=== PATIENT | female | born 1990 | race Caucasian/White ===

== ENCOUNTER 2018-10-26 18:15 | Emergency (ER) | payer SELFPAY ==
[2018-10-26 19:02] VITALS: TEMP 98; O2SAT 98
--- NOTE | 2018-10-26 19:07 | ED.PDOC ---
History of Present Illness - General Chief Complaint: General Stated Complaint: WANTS HELP WITH DETOX FROM METHADONE AND HEROIN Time Seen by Provider: 10/26/18 19:02 Source: patient Exam Limitations: no limitations - History of Present Illness Initial Comments: Patient presents with tremors and dehydration. She has been detoxing from opiates. She has had suboxone in the last week but has not had anything else since. She has had N/V/D for several days. She says that when this has happened before, Phenergan and Clonidine have helped. She has abdominal cramping and a poor appetite. She denies any current recreational drugs. She quit smoking cigarrettes two years ago. No other complaints. Timing/Duration: other - "several days" Severity: moderate Improving Factors: nothing Worsening Factors: nothing Associated Symptoms: denies symptoms Allergies/Adverse Reactions: Allergies Ondansetron [From Zofran] Adverse Reaction (Verified 10/26/18 18:54) Home Medications: Ambulatory Orders Clonidine HCl 0.1 mg PO DAILY #3 tab 10/26/18 Promethazine Tab [Phenergan Tablet] 25 mg PO .Q4H #6 tab 10/26/18 Review of Systems - Review of Systems Constitutional: States: no symptoms reported EENTM: States: no symptoms reported Respiratory: States: no symptoms reported Cardiology: States: no symptoms reported Gastrointestinal/Abdominal: States: see HPI Genitourinary: States: no symptoms reported Musculoskeletal: States: see HPI Skin: States: no symptoms reported Neurological: States: see HPI Endocrine: States: no symptoms reported Hematologic/Lymphatic: States: no symptoms reported Past Medical History (General) - Patient Medical History Hx Asthma: No Hx of COPD: No Hx Congestive Heart Failure: No Hx Hypertension: No Hx Diabetes: No Hx Hepatitis C: Yes - Vaccination History Hx Tetanus, Diphtheria Vaccination: Yes Hx Influenza Vaccination: No Hx Pneumococcal Vaccination: No - Social History Hx Tobacco Use: No Hx Alcohol Use: No Hx Substance Use: Yes Hx Substance Use Treatment: Yes Hx Depression: Yes - Female History Patient is a Female of Child Bearing Age (10 -59 yrs old): Yes Family Medical History - Family History Mother Family History: Unknown Physical Exam - Physical Exam General Appearance: Anxious Eye Exam: bilateral normal Ears, Nose, Throat: normal ENT inspection Neck: non-tender, full range of motion, supple Respiratory: lungs clear, normal breath sounds Cardiovascular/Chest: normal peripheral pulses, regular rate, rhythm, no edema Gastrointestinal/Abdominal: normal bowel sounds, non tender, soft Back Exam: normal inspection, no CVA tenderness Extremity: normal range of motion, non-tender, normal inspection Neurologic: no motor/sensory deficits, alert, normal mood/affect, oriented x 3, other - mild tremors in the hands Skin Exam: normal color Lymphatic: no adenopathy Progress - Progress Progress: 10/26/18 20:43 We could not get an IV line started on the patient for rehydration nor could we get a blood draw due to poor veins after a long history of needle sticks. Patient was given Phenergan 25 mg po x one and Clonidine 0.1 mg po x one and said that she felt better. She was sent home with an RX for two more Clonidine tablets and Phenergan x 6 tablets. Extensive directions on oral rehydration were given. E.R. warnings given. Care instructions given. Questions were elicited and answered. The patient voiced understanding and agreement with the plan. - EKG/XRAY/CT CT Ordered: No Departure - Departure Clinical Impression: Opioid withdrawal Disposition: Discharge to Home or Self Care Condition: Good Departure Forms: ED Discharge - Pt. Copy, Patient Portal Self Enrollment Diet: resume usual diet, other - Increase oral fluids Activity: increase activity as tolerated Prescriptions: Clonidine HCl 0.1 mg PO DAILY #3 tab Promethazine Tab [Phenergan Tablet] 25 mg PO .Q4H #6 tab Home Medications: Ambulatory Orders Clonidine HCl 0.1 mg PO DAILY #3 tab 10/26/18 Promethazine Tab [Phenergan Tablet] 25 mg PO .Q4H #6 tab 10/26/18 Additional Instructions: Try rehydrating orally by taking 2 ounces of fluid every 15 minutes. Take the medications as prescribed. Return to the E.R. for worsening symptoms or if you can't keep taking in oral fluids.
[2018-10-26] MEDS ORDERED: PROMETHAZINE HCL INJ 25 MG in SODIUM CHLORIDE 0.9% 50ML 50 ML IVPB ONE (19:34)
[2018-10-26] MEDS ORDERED: cloNIDine HCL 0.1 MG TAB PO ONE (19:35)
[2018-10-26] MEDS ORDERED: SODIUM CHLORIDE 0.9% 1000ML 1,000 ML IVS ONE (19:36)
[2018-10-26] MEDS ORDERED: PROMETHAZINE HCL 25 MG TAB PO ONE (20:01)
[2018-10-26 21:02] VITALS: BP 113/79
== END 2018-10-26 21:03 | disposition home or self-care (01) ==
LOC: ER 18:15
DX: F11.23 Opioid dependence with withdrawal (principal); F15.11 Other stimulant abuse, in remission; F32.9 Major depressive disorder, single episode, unspecified; Z86.19 Personal history of other infectious and parasitic diseases; Z87.891 Personal history of nicotine dependence